=== PATIENT | female | born 1970 | race Caucasian/White ===

== ENCOUNTER 2019-07-19 17:39 | Inpatient (IN) | payer BC ==
[2019-07-19] MEDS ORDERED: AMPICILLIN NA/SULBACTAM NA 3 GM in SODIUM CHLORIDE 100 ML IVPB ONE (18:05)
--- NOTE | 2019-07-19 18:05 | PDOC ---
Rapid Medical Evaluation Medical Evaluation: I have performed a brief in-person evaluation of this patient. The patient presents with a chief complaint of: s/p dog bite 2 days ago by her own dog; was placed on bactrim by outside urgent care; dog is UTD on rabies; saw allergy doctor today for follow-up and was advised to come to ED for streaking Pertinent physical exam findings: +L hand swelling, redness, streaking extending to shoulder I have ordered the following: Labs, abx The patient will proceed to the ED for further evaluation. 07/19/19 18:00 Discharge Disposition - Referrals Referrals: Giovanni Ramsey MD [Primary Care Provider] - - Patient Instructions - Post Discharge Activity
[2019-07-19 18:40] LABS: BASO % 0.4 % (0-2.0); EOS % 0.5 % (0-4.5); HEMOGLOBIN 12.4 GM/dL (10.7-15.3); LYMPH % 21.1 % (8-40); MCH 31.8 pg (25.7-33.7); MCHC 33.5 g/dl (32.0-36.0); MEAN CELL VOLUME 94.8 fl (80-96); PLATELET COUNT 178 K/MM3 (134-434)
[2019-07-19 19:14] LABS: ALBUMIN 3.9 g/dl (3.4-5.0); BILIRUBIN,TOTAL 0.7 mg/dL (0.2-1); CREATININE 0.8 mg/dL (0.55-1.3); POTASSIUM 3.7 mmol/L (3.5-5.1); TOT PROT 6.9 g/dl (6.4-8.2)
--- NOTE | 2019-07-19 19:34 | PDOC ---
History of Present Illness - General Chief Complaint: Wound Stated Complaint: LEFT HAND BITE BY DOG Time Seen by Provider: 07/19/19 18:00 History Source: Patient - History of Present Illness Initial Comments: 07/19/19 20:07 48 year old female s/p dog bite 2 days ago to left hand c/o increased redness and swelling to left hand with streaking to left axilla patient is currently on Bactrim denies fever/ chills, nausea, vomiting. PCP: Dr. Ramsey Allergisy/ asthma: Dr. Chaudhari PMHX: asthma, MBL deficiency, spinal fusion, mild mitral valve prolapse. 07/19/19 20:09 Past History - Past Medical History Allergies/Adverse Reactions: Allergies Allergy/AdvReac Type Severity Reaction Status Date / Time No Known Allergies Allergy Verified 07/19/19 18:08 Home Medications: Ambulatory Orders Metoprolol Succinate [Toprol Xl -] mg PO DAILY 07/19/19 Simvastatin [Zocor -] mg PO HS 07/19/19 Cardiac Disorders: Yes (MITRAL VALVE PROLAPSE) COPD: No HTN: Yes Other medical history: MANNOSE-BINDING LECTIN DEFICIENCY - Immunization History Immunization Up to Date: Yes - Suicide/Smoking/Psychosocial Hx Smoking Status: No Smoking History: Never smoked Years of Tobacco Use: 0 Have you smoked in the past 12 months: No Number of Cigarettes Smoked Daily: 0 Cigars Per Day: 0 Information on smoking cessation initiated: No Hx Alcohol Use: No (SOCIAL) Drug/Substance Use Hx: No Review of Systems - Review of Systems Able to Perform ROS?: Yes Is the patient limited Croatian proficient: No Constitutional: No: Symptoms Reported, See HPI, Chills, Diaphoresis, Fever, Loss of Appetite, Malaise, Night Sweats, Weakness, Weight Stable, Unintentional Wgt. Loss, Unexplained wgt Loss, Other Integumentary: Yes: Erythema (and pain to left hand) *Physical Exam - Vital Signs Last Vital Signs Temp Pulse Resp BP Pulse Ox 98.5 F 71 18 145/93 98 07/19/19 18:01 07/19/19 18:01 07/19/19 18:01 07/19/19 18:01 07/19/19 18:01 - Physical Exam General Appearance: Yes: Appropriately Dressed Respiratory/Chest: positive: Lungs Clear, Normal Breath Sounds Extremity: positive: Erythema (and swelling to left hand with streaking to axilla) Integumentary: positive: Normal Color, Dry, Warm Neurologic: positive: recovery operator helper II-XII NML intact, Fully Oriented, Alert, Normal Mood/ Affect ED Treatment Course - LABORATORY CBC & Chemistry Diagram: 07/19/19 18:19 07/19/19 18:19 - ADDITIONAL ORDERS Additional order review: Laboratory Results 07/19/19 18:19 Sodium 138 Potassium 3.7 Chloride 104 Carbon Dioxide 29 Anion Gap 5 L BUN 13.0 Creatinine 0.8 Est GFR (CKD-EPI)AfAm 99.63 Est GFR (CKD-EPI)NonAf 85.96 Random Glucose 84 Calcium 9.0 Total Bilirubin 0.7 AST 17 ALT 23 Alkaline Phosphatase 58 Total Protein 6.9 Albumin 3.9 07/19/19 18:19 RBC 3.90 MCV 94.8 MCHC 33.5 RDW 13.0 MPV 8.0 Neutrophils % 72.0 Lymphocytes % 21.1 Monocytes % 6.0 Eosinophils % 0.5 Basophils % 0.4 Medical Decision Making - Medical Decision Making 07/19/19 20:14 A: cellulitis with failed outpatient treatment P: blood culture cbc cmp ua IVF left hand xray zosyn vanco admit *DC/Admit/Observation/Transfer Diagnosis at time of Disposition: Cellulitis and abscess of hand - Discharge Dispostion Decision to Admit order: Yes - Referrals Referrals: Giovanni Ramsey MD [Primary Care Provider] - - Patient Instructions - Post Discharge Activity
[2019-07-19] MEDS ORDERED: VANCOMYCIN 1 GM in D5W (PRE-DOCKED) 1,000 MG/250 ML IVPB ONE (19:39)
[2019-07-19] MEDS ORDERED: PIPERACILLIN/TAZOB 3.375 GM 3.375 GM in DEXTROSE 5%-WATER - 50 ML IVPB ONE (19:39)
[2019-07-19] MEDS ORDERED: VANCOMYCIN 1 GRAM (PRE-DOCKED) 1,000 MG/250 ML BAG IVPB ONE (19:45)
[2019-07-19] MEDS ORDERED: PIPERACILLIN/TAZOB 3.375 GM 3.375 GM/50 ML BAG IVPB ONE (19:45)
--- NOTE | 2019-07-19 19:45 | PDOC ---
*Physical Exam - Vital Signs Last Vital Signs Temp Pulse Resp BP Pulse Ox 98.5 F 71 18 145/93 98 07/19/19 18:01 07/19/19 18:01 07/19/19 18:01 07/19/19 18:01 07/19/19 18:01 ED Treatment Course - LABORATORY CBC & Chemistry Diagram: 07/19/19 18:19 07/19/19 18:19 - ADDITIONAL ORDERS Additional order review: Laboratory Results 07/19/19 18:19 Sodium 138 Potassium 3.7 Chloride 104 Carbon Dioxide 29 Anion Gap 5 L BUN 13.0 Creatinine 0.8 Est GFR (CKD-EPI)AfAm 99.63 Est GFR (CKD-EPI)NonAf 85.96 Random Glucose 84 Calcium 9.0 Total Bilirubin 0.7 AST 17 ALT 23 Alkaline Phosphatase 58 Total Protein 6.9 Albumin 3.9 07/19/19 18:19 RBC 3.90 MCV 94.8 MCHC 33.5 RDW 13.0 MPV 8.0 Neutrophils % 72.0 Lymphocytes % 21.1 Monocytes % 6.0 Eosinophils % 0.5 Basophils % 0.4 - Medications Given in the ED: ED Medications Discontinued Medications Generic Name Dose Route Start Last Admin Trade Name Freq PRN Reason Stop Dose Admin Ampicillin Sodium/Sulbactam 100 mls @ 200 mls/hr 07/19/19 18:05 07/19/19 19: 42 Sodium 3 gm/ Sodium Chloride IVPB 07/19/19 18:34 Not Given ONCE ONE Medical Decision Making - Medical Decision Making 07/19/19 19:45 Patient seen by the advanced practice provider under my direct supervision. Ancillary testing reviewed as necessary. I agree with plan as outlined by the advanced practice provider. *DC/Admit/Observation/Transfer Diagnosis at time of Disposition: Cellulitis and abscess of hand - Referrals - Patient Instructions - Post Discharge Activity
[2019-07-19 20:21] LABS: EPI CELLS 2.6 /HPF (0-5/HPF); HYALINE CASTS 1 /lpf (0-8); URINE APPEARANCE CLEAR; URINE BACTERIA 48.6 /hpf (NEGATIVE); URINE BILIRUBIN NEGATIVE (NEGATIVE); URINE COLOR YELLOW; URINE GLUCOSE (UA) NEGATIVE (NEGATIVE); URINE KETONE TRACE (NEGATIVE); URINE LEUK ESTERASE NEGATIVE (NEGATIVE); URINE NITRITE NEGATIVE (NEGATIVE); URINE PROTEIN NEGATIVE (NEGATIVE); URINE UROBILINOGEN 0.2 mg/dL (0.2-1.0); URINE WBC 1 /hpf (0-5)
--- NOTE | 2019-07-19 20:48 | HP ---
Admitting History and Physical - Primary Care Physician PCP: Giovanni Ramsey - Admission Chief Complaint: Left Hand Swelling with Redness History of Present Illness: This is a 48 y/o woman with a PMHx of Asthma, MVP, MBL Deficiency, MVP. Who presents to the ED with worsening redness, pain and swelling to her left hand s/ p dog bite 2 days ago. Patient reports that her dog's vaccinations are up to date. Patient was seen and treated at Urgent Care placed on Bactrim with no improvement. Patient reports today increased swelling with redness going up her left arm. She reports taking Advil for pain with some relief. Patient denies fever, chills, numbness, tingling. Patient denies cough, BOOKER, dizziness, SOB, CP , palpitations, AP, N/V/D, constipation, dysuria. Patient's last TD one year ago. LMP 2 weeks ago History Source: Patient Limitations to Obtaining History: No Limitations - Past Medical History Cardiovascular: Yes: Hyperlipdemia, Other (MVP) Pulmonary: Yes: Asthma Additional Past Medical History: MDL deficiency - Past Surgical History Additional Past Surgical History: Spinal Fusion - Smoking History Smoking history: Never smoked Have you smoked in the past 12 months: No Aproximately how many cigarettes per day: 0 - Alcohol/Substance Use Hx Alcohol Use: No (SOCIAL) Home Medications - Allergies Allergies/Adverse Reactions: Allergies Allergy/AdvReac Type Severity Reaction Status Date / Time No Known Allergies Allergy Verified 07/19/19 18:08 - Home Medications Home Medications: Ambulatory Orders Metoprolol Succinate [Toprol Xl -] 50 mg PO DAILY 07/19/19 Simvastatin [Zocor -] 20 mg PO HS 07/19/19 Family Disease History - Family Disease History Family Disease History: Heart Disease: Father ([place] age 45), Mother Review of Systems - Review of Systems Constitutional: reports: No Symptoms Eyes: reports: No Symptoms HENT: reports: No Symptoms Neck: reports: No Symptoms Cardiovascular: reports: No Symptoms Respiratory: reports: No Symptoms Gastrointestinal: reports: No Symptoms Genitourinary: reports: No Symptoms Breasts: reports: No Symptoms Reported Musculoskeletal: reports: Extremity Pain, Other (left hand swelling) Integumentary: reports: Erythema, Wound Neurological: reports: No Symptoms Endocrine: reports: No Symptoms Hematology/Lymphatic: reports: No Symptoms Psychiatric: reports: No Symptoms Pain Intensity: 5 Physical Examination Vital Signs: Vital Signs Temperature 98.5 F 07/19/19 18:01 Pulse Rate 71 07/19/19 18:01 Respiratory Rate 18 07/19/19 18:01 Blood Pressure 145/93 07/19/19 18:01 O2 Sat by Pulse Oximetry (%) 98 07/19/19 18:01 Constitutional: Yes: Well Nourished, No Distress, Calm Eyes: Yes: WNL, Conjunctiva Clear, EOM Intact, PERRL HENT: Yes: WNL, Atraumatic, Normocephalic Neck: Yes: WNL, Supple, Trachea Midline Cardiovascular: Yes: WNL, Regular Rate and Rhythm, S1, S2 Respiratory: Yes: WNL, Regular, CTA Bilaterally Gastrointestinal: Yes: WNL, Normal Bowel Sounds, Soft ...Rectal Exam: Yes: Deferred Renal/: Yes: WNL Breast(s): Yes: WNL Musculoskeletal: Yes: Other (swelling to left hand/fingers) Extremities: Yes: Erythema (left hand, fluctulance to palmar aspect with streaking going up to left upper arm), Other Peripheral Pulses WNL: Yes Integumentary: Yes: Erythema Wound/Incision: Yes: Reddened Neurological: Yes: WNL, Alert, Oriented, Cran Nerves II-XII Intact ...Motor Strength: WNL Psychiatric: Yes: WNL, Alert, Oriented Labs: CBC, BMP 07/19/19 18:19 07/19/19 18:19 Laboratory Results - last 24 hr 07/19/19 07/19/19 07/19/19 18:19 18:19 19:55 WBC 8.0 RBC 3.90 Hgb 12.4 Hct 37.0 MCV 94.8 MCH 31.8 MCHC 33.5 RDW 13.0 Plt Count 178 D MPV 8.0 Absolute Neuts (auto) 5.8 Neutrophils % 72.0 Lymphocytes % 21.1 Monocytes % 6.0 Eosinophils % 0.5 Basophils % 0.4 Nucleated RBC % 0 Sodium 138 Potassium 3.7 Chloride 104 Carbon Dioxide 29 Anion Gap 5 L BUN 13.0 Creatinine 0.8 Est GFR (CKD-EPI)AfAm 99.63 Est GFR (CKD-EPI)NonAf 85.96 Random Glucose 84 Calcium 9.0 Total Bilirubin 0.7 AST 17 ALT 23 Alkaline Phosphatase 58 Total Protein 6.9 Albumin 3.9 Serum , Qual Urine Color Yellow Urine Appearance Clear Urine pH 7.0 Ur Specific [place] 1.009 L Urine Protein Negative Urine Glucose (UA) Negative Urine Ketones Trace H Urine Blood Trace Urine Nitrite Negative Urine Bilirubin Negative Urine Urobilinogen 0.2 Ur Leukocyte Esterase Negative Urine WBC (Auto) 1 Urine RBC (Auto) 5-10 Urine Casts (Auto) 1 U Epithel Cells (Auto) 2.6 Urine Bacteria (Auto) 48.6 Urine Yeast (Auto) Negative 07/20/19 00:34 WBC RBC Hgb Hct MCV MCH MCHC RDW Plt Count MPV Absolute Neuts (auto) Neutrophils % Lymphocytes % Monocytes % Eosinophils % Basophils % Nucleated RBC % Sodium Potassium Chloride Carbon Dioxide Anion Gap BUN Creatinine Est GFR (CKD-EPI)AfAm Est GFR (CKD-EPI)NonAf Random Glucose Calcium Total Bilirubin AST ALT Alkaline Phosphatase Total Protein Albumin Serum , Qual Negative Urine Color Urine Appearance Urine pH Ur Specific [place] Urine Protein Urine Glucose (UA) Urine Ketones Urine Blood Urine Nitrite Urine Bilirubin Urine Urobilinogen Ur Leukocyte Esterase Urine WBC (Auto) Urine RBC (Auto) Urine Casts (Auto) U Epithel Cells (Auto) Urine Bacteria (Auto) Urine Yeast (Auto) Intake & Output 07/17/19 07/18/19 07/19/19 07/20/19 23:59 23:59 23:59 23:59 Weight 73.573 kg Current Medications Generic Name Dose Route Start Last Admin Trade Name Freq PRN Reason Stop Dose Admin Albuterol Sulfate 2 puff 07/20/19 00:43 Ventolin Hfa Inhaler - IH Q4H PRN SHORT OF BREATH/WHEEZING Heparin Sodium (Porcine) 5,000 unit 07/19/19 22:00 07/20/19 00:06 Heparin - SQ 5,000 unit BID [facility] Administration Vancomycin HCl 1,000 mg/ 250 mls @ 200 mls/hr 07/20/19 10:00 Dextrose IVPB Q24H [facility] Protocol Piperacillin Sod/Tazobactam 50 mls @ 100 mls/hr 07/20/19 04:00 Sod 3.375 gm/ Dextrose IVPB Q8H-IV [facility] Protocol Piperacillin Sod/Tazobactam 50 mls @ 100 mls/hr 07/20/19 02:00 07/20/19 01:13 Sod 3.375 gm/ Dextrose IVPB 07/20/19 18:29 100 mls/hr Q8H-IV [facility] Administration Protocol Ibuprofen 400 mg 07/20/19 00:31 07/20/19 00:41 Motrin - PO 400 mg Q6H PRN Administration PAIN LEVEL 6-10 Metoprolol Succinate 50 mg 07/20/19 10:00 Toprol Xl - PO DAILY [facility] Non-Formulary Medication 20 mg 07/20/19 22:00 Simvastatin PO HS [facility] Imaging - Results Chest X-ray: Image Reviewed X-ray: Image Reviewed EKG: Image Reviewed Problem List - Problems (1) Cellulitis and abscess of hand Assessment/Plan: s/p dog bite Likely secondary to Failed Outpatient Therapy Blood Cultures-pending No leukocytosis, is afebrile- likely due to ABX use Vancomycin and Zosyn given in ED, will continue Xray Left Hand image reviewed Appreciate ID consult Elevate extremity Neurovascular checks Monitor CBC, BMP Monitor vitals Code(s): L03.119 - CELLULITIS OF UNSPECIFIED PART OF LIMB; L02.519 - CUTANEOUS ABSCESS OF UNSPECIFIED HAND (2) Asthma Assessment/Plan: stable No acute flare Albuterol MDI prn Code(s): J45.909 - UNSPECIFIED ASTHMA, UNCOMPLICATED (3) MVP (mitral valve prolapse) Assessment/Plan: stable Continue Metoprolol with parameters Code(s): I34.1 - NONRHEUMATIC MITRAL (VALVE) PROLAPSE (4) HLD (hyperlipidemia) Assessment/Plan: stable Continue Zocor Monitor LFTs Code(s): E78.5 - HYPERLIPIDEMIA, UNSPECIFIED (5) Mannose-binding lectin deficiency Assessment/Plan: f/u with Press Department Manager Code(s): Q99.8 - OTHER SPECIFIED CHROMOSOME ABNORMALITIES Assessment/Plan This is a 48 y/o woman with a PMHx of Asthma, MVP, MBL Deficiency, s/p Spinal Fusion. Admitted for Cellulitis of L- Hand for further evaluation of their emergent condition. Plan: See Problem List FEN PO fluids as tolerated Replete lytes prn Low Na Diet DVT ppx OOB SCDs Heparin SQ Dispo: Requires Inpatient Care Visit type - Emergency Visit Emergency Visit: Yes ED Registration Date: 07/19/19 Care time: The patient presented to the Emergency Department on the above date and was hospitalized for further evaluation of their emergent condition. - New Patient This patient is new to me today: Yes Date on this admission: 07/19/19 - Critical Care Critical Care patient: No
[2019-07-19] MEDS ORDERED: VANCOMYCIN 1 GRAM (PRE-DOCKED) 1,000 MG/250 ML BAG IVPB SCH (21:00)
[2019-07-19 21:06] LABS: YEAST NEGATIVE (NEGATIVE)
[2019-07-19 23:52] VITALS: BMI 24.6
[2019-07-20] MEDS ORDERED: PIPERACILLIN/TAZOBACTAM 3.375 GM VIAL IVPB ONE ×2 (00:02→09:27)
[2019-07-20] MEDS ORDERED: DEXTROSE 5%-WATER - 50 ML IVPB ONE ×2 (00:02→09:27)
[2019-07-20] MEDS: HEPARIN NA (PORCINE) 5,000 UNITS/ML 1ML VIAL SQ SCH ×3 (00:06→22:35)
[2019-07-20] MEDS ORDERED: IBUPROFEN 400 MG TABLET (FP) PO PRN (00:31)
[2019-07-20] MEDS ORDERED: ALBUTEROL SO4 8 GM HFA INHALER IH PRN (00:43)
[2019-07-20] MEDS: PIPERACILLIN/TAZOB 3.375 GM 3.375 GM in DEXTROSE 5%-WATER - 50 ML IVPB SCH ×2 (01:13→09:30)
[2019-07-20] MEDS ORDERED: PIPERACILLIN/TAZOB 3.375 GM 3.375 GM in DEXTROSE 5%-WATER - 50 ML IVPB SCH (04:00)
[2019-07-20 08:14] LABS: BASO % 0.4 % (0-2.0); HEMATOCRIT 35.1 % (32.4-45.2); HEMOGLOBIN 11.8 GM/dL (10.7-15.3); LYMPH % 26.3 % (8-40); MCH 31.8 pg (25.7-33.7); MCHC 33.6 g/dl (32.0-36.0); MEAN CELL VOLUME 94.6 fl (80-96); MEAN PLT VOLUME 8.1 fl (7.5-11.1); MONO % 8.7 % (3.8-10.2); NEUT % 63.6 % (42.8-82.8); PLATELET COUNT 168 K/MM3 (134-434); RBC 3.71 M/mm3 (3.60-5.2); RDW 12.8 % (11.6-15.6); WHITE BLOOD COUNT 4.8 K/mm3 (4.0-10.0)
[2019-07-20 08:35] LABS: CALCIUM 8.8 mg/dL (8.5-10.1); CREATININE 0.7 mg/dL (0.55-1.3); POTASSIUM 3.9 mmol/L (3.5-5.1)
[2019-07-20] MEDS ORDERED: PT OWN MED DRAWER 7, Y5N ONE (09:27)
[2019-07-20] MEDS ORDERED: VANCOMYCIN 1,000 MG in DEXTROSE 5%-WATER - 250 ML IVPB SCH (10:00)
--- NOTE | 2019-07-20 10:02 | PN ---
Progress Note (short form) - Note Progress Note: Pt seen and examined. She is a 48 year old right hand dominant female who was bitten by her dog 3 days ago, her left hand became infected, the infection was spreading to her forearm when she was instructed to come to the ER. Since admission she has been on IV antibiotics, and she states that the infection stopped spreading and is much improved. Her pain is less, her ROM is better, the area of streaking erythema is dramatically better, swelling is better. AVSS WBC decreased to 4.8 Blood Cx Pending Left hand has mild swelling and erythema around the middle finger, going into the hand. No streaking into the forearm. Not hot. No fluid collection/abscess No signs of flexor tendon sheath infection NVI No functional deficits Nontender globally over the left hand, and middle finger X-rays of the left hand are normal, no acute vikas pathology Imp Dog bite infection of the left hand and middle finger, now much improved. Rec No need for surgery Rec elevation, ROM exercises Con't abx as per PMD, will change to PO soon
--- NOTE | 2019-07-20 10:33 | PN ---
Progress Note (short form) - Note Progress Note: CELLULITIS/ LYMPHANGITIS L HAND S/P DOG BITE L HAND HX MANNOSE BINDING LECTIN DEFICIENCY AWAIT C/S EMPIRIC UNASYN/ VANCOMYCIN ELEVATION HAND SURGERY EVALUATION APPRECIATED
[2019-07-20] MEDS: VANCOMYCIN 1 GRAM (PRE-DOCKED) 1,000 MG/250 ML BAG IVPB SCH ×2 (11:21→22:40)
--- NOTE | 2019-07-20 11:27 | EKG ---
Test Reason : Blood Pressure : / mmHG Vent. Rate : 065 BPM Atrial Rate : 065 BPM P-R Int : 166 ms QRS Dur : 116 ms QT Int : 440 ms P-R-T Axes : 082 067 065 degrees QTc Int : 457 ms NORMAL SINUS RHYTHM POSSIBLE LEFT ATRIAL ENLARGEMENT INCOMPLETE RIGHT BUNDLE BRANCH BLOCK BORDERLINE ECG WHEN COMPARED WITH ECG OF 05-JUN-2016 07:57, NO SIGNIFICANT CHANGE WAS FOUND Confirmed by RUSTY SWAIN, JULIANE ([id number]) on 07/20/2019 11:27:16 AM Referred By: Confirmed By:JULIANE OJEDA MD
--- NOTE | 2019-07-20 13:19 | CONS ---
INFECTIOUS DISEASE CONSULTATION DATE OF CONSULTATION: DATE OF DICTATION: 07/20/2019 HISTORY OF PRESENT ILLNESS: The patient is a 48-year-old, female with a history of asthma and mannose-binding lectin deficiency who is evaluated for cellulitis and lymphangitis of the left hand and left upper extremity. Patient sustained a dog bite to her left hand on Wednesday, July 17, 2019. The patient reports that it was her own pet beagle who is up-to-date with respect to immunizations. She sustained a bite wound to the dorsum and palmar aspects of the left hand. She developed swelling and erythema. She presented to an [facility] where she was evaluated and prescribed Bactrim. Yesterday, she presented to her hcc coders and was noted to have marked swelling and erythema of the left hand with lymphangitic streaking. She was advised to go to the emergency room for admission. The patient was evaluated and admitted. She was empirically treated with vancomycin and Zosyn. The patient did note some purulent drainage from the palmar bite wound. No culture is available. The patient states her dog is up-to-date with respect to immunizations. She herself received a tetanus vaccine approximately 1 year ago. She reports recently being diagnosed with mannose-binding lactin deficiency. She is on no specific treatment for that condition. She denies any associated fever or chills. Patient denies history of serious soft-tissue infection requiring hospitalization or intravenous antibiotics. PAST MEDICAL HISTORY: Positive for asthma, mannose-binding lactin deficiency, hyperlipidemia, mitral valve prolapse. PAST SURGICAL HISTORY: Status post spinal fusion. ALLERGIES: No known allergies. MEDICATIONS: Toprol, Zocor. SYSTEMS REVIEW: Neurologic: No loss of consciousness, seizure activity, focal weakness. Cardiac: Negative chest pain or palpitations. Respiratory: Negative cough or sputum production. Gastrointestinal: Negative vomiting or diarrhea. Genitourinary: Negative for urinary tract infection. SOCIAL HISTORY: Lives at home with her significant other. She is a nonsmoker. Occasional EtOH. LABORATORY DATA: White count 4.8, hematocrit 35.1, platelet count 168. Creatinine 0.7. test negative. Urinalysis: One white cell. Blood cultures are pending. IMAGING: X-ray of the hand shows no acute bony abnormalities. PHYSICAL EXAMINATION: General: On physical examination, she is awake and alert, supine in bed, in no acute distress. Vital Signs: Temperature 98.7, blood pressure 116/60, pulse 66 regular, respirations 18 per minute. Eyes: Sclerae are anicteric. Heart: Heart sounds S1, S2. No murmur. Lungs: Clear. Abdomen: Soft. Nontender. Extremities: Negative for pedal edema. Examination of the left hand: There are puncture wounds present on the dorsum and palmar aspects of the left hand. There is swelling of the dorsum of the hand, as well as the 3rd MCP joint with diffuse swelling of the left 3rd digit. There is erythema extending from the finger to the dorsum of the hand with lymphangitic streaking above the elbow on the medial aspect of the upper extremity. No expressible pus. There is tenderness to palpation. IMPRESSION: 1. Status post dog bite, left hand. 2. Cellulitis/lymphangitis, left hand and upper extremity. 3. History of mannose-binding lectin deficiency. Await cultures. Empiric antibiotic coverage with Unasyn and vancomycin. Elevation. Hand Surgery evaluation appreciated. Thank you for the kind referral. MIGUEL MEADOWS M.D. [id number]
--- NOTE | 2019-07-20 14:04 | PN ---
Progress Note, Physician Chief Complaint: Cellulitis, L hand History of Present Illness: Previous notes and events reviewed awake and alert NAD mild complaints of pain to L hand no leukocytosis afebrile - Current Medication List Current Medications: Active Medications Albuterol Sulfate (Ventolin Hfa Inhaler -) 2 puff IH Q4H PRN PRN Reason: SHORT OF BREATH/WHEEZING Heparin Sodium (Porcine) (Heparin -) 5,000 unit SQ BID [facility] Last Admin: 07/20/19 09:32 Dose: 5,000 unit Ampicillin Sodium/Sulbactam (Sodium 3 gm/ Sodium Chloride) 100 mls @ 200 mls/ hr IVPB Q8H-IV [facility] Vancomycin HCl (Vancomycin (Pre-Docked)) 1,000 mg in 250 mls @ 166.667 mls/hr IVPB Q12H [facility]; Protocol Last Admin: 07/20/19 11:21 Dose: 166.667 mls/hr Ibuprofen (Motrin -) 400 mg PO Q6H PRN PRN Reason: PAIN LEVEL 6-10 Last Admin: 07/20/19 00:41 Dose: 400 mg Metoprolol Succinate (Toprol Xl -) 50 mg PO DAILY [facility] Last Admin: 07/20/19 09:39 Dose: Not Given Non-Formulary Medication (Simvastatin) 20 mg PO HS [facility] - Objective Vital Signs: Vital Signs Temperature 98 F 07/20/19 08:25 Pulse Rate 64 07/20/19 08:25 Respiratory Rate 20 07/20/19 08:25 Blood Pressure 134/75 07/20/19 08:25 O2 Sat by Pulse Oximetry (%) 99 07/19/19 23:36 Constitutional: Yes: No Distress, Calm Eyes: Yes: Conjunctiva Clear HENT: Yes: Atraumatic Cardiovascular: Yes: Regular Rate and Rhythm Respiratory: Yes: Regular, CTA Bilaterally Gastrointestinal: Yes: Normal Bowel Sounds, Soft Musculoskeletal: Yes: WNL Extremities: Yes: Erythema (LUE) Edema: Yes (L hand) Integumentary: Yes: Erythema (L hand) Wound/Incision: Yes: Open to air (L palm, no drainage noted, mild erythema, warm to touch) Neurological: Yes: Alert, Oriented Psychiatric: Yes: Alert, Oriented Labs: CBC, BMP 07/20/19 07:37 07/20/19 07:37 Problem List - Problems (1) Asthma Assessment/Plan: -bronchodilator -O2 via NC prn for SOB -keep SpO2 >90% Code(s): J45.909 - UNSPECIFIED ASTHMA, UNCOMPLICATED (2) Cellulitis and abscess of hand Assessment/Plan: -ID on board -IV Unasyn, Vancomycin -BC pending -no leukocytosis -afebrile -Hand Surgery on board--no surgical intervention recommended -ROM exercises -L hand elevation Code(s): L03.119 - CELLULITIS OF UNSPECIFIED PART OF LIMB; L02.519 - CUTANEOUS ABSCESS OF UNSPECIFIED HAND (3) HLD (hyperlipidemia) Assessment/Plan: -Simvastatin Code(s): E78.5 - HYPERLIPIDEMIA, UNSPECIFIED Assessment/Plan see problem list dvt ppx
[2019-07-20] MEDS ORDERED: SODIUM CHLORIDE 100 ML IVPB ONE (17:48)
[2019-07-20] MEDS ORDERED: AMPICILLIN NA/SULBACTAM NA 3 GM VIAL ONE (17:48)
[2019-07-20] MEDS: AMPICILLIN NA/SULBACTAM NA 3 GM in SODIUM CHLORIDE 100 ML IVPB SCH (17:55)
[2019-07-20] MEDS ORDERED: PATIENT'S OWN MEDICATION (NON-FORMULARY) (Simvastatin 20 MG) PO SCH (22:00)
[2019-07-20] MEDS: ATORVASTATIN CA 10 MG TABLET (FP) PO SCH ×2 (22:35→22:46)
[2019-07-21] MEDS ORDERED: AMPICILLIN NA/SULBACTAM NA 3 GM VIAL ONE ×2 (01:42→09:27)
[2019-07-21] MEDS ORDERED: SODIUM CHLORIDE 100 ML IVPB ONE ×2 (01:42→09:28)
[2019-07-21] MEDS: AMPICILLIN NA/SULBACTAM NA 3 GM in SODIUM CHLORIDE 100 ML IVPB SCH ×2 (01:55→09:31)
[2019-07-21 07:41] LABS: HEMATOCRIT 36.8 % (32.4-45.2); HEMOGLOBIN 12.3 GM/dL (10.7-15.3); MCH 31.4 pg (25.7-33.7); MCHC 33.4 g/dl (32.0-36.0); PLATELET COUNT 177 K/MM3 (134-434); RBC 3.92 M/mm3 (3.60-5.2); RDW 12.7 % (11.6-15.6); WHITE BLOOD COUNT 2.7 K/mm3 (4.0-10.0)
[2019-07-21 08:17] LABS: ALBUMIN 3.3 g/dl (3.4-5.0); BILIRUBIN,TOTAL 0.5 mg/dL (0.2-1); BLOOD UREA NITROGEN 10.3 mg/dL (7-18); CALCIUM 8.7 mg/dL (8.5-10.1); CREATININE 0.8 mg/dL (0.55-1.3); TOT PROT 6.2 g/dl (6.4-8.2)
[2019-07-21] MEDS: HEPARIN NA (PORCINE) 5,000 UNITS/ML 1ML VIAL SQ SCH (09:30)
--- NOTE | 2019-07-21 09:34 | PN ---
Progress Note (short form) - Note Progress Note: Pt seen and examined. She is much improved compared to 24 hours ago. Her pain, swelling, erythema are all less. Better ROM with little to no pain. Overall the cellulitis of the left middle finger and hand are much improved. Can change to PO antibiotics and DC from an orthopedic pov. Can f/u as needed
--- NOTE | 2019-07-21 10:20 | DS ---
Physical Examination Vital Signs: Vital Signs Temperature 98.1 F 07/21/19 06:21 Pulse Rate 51 L 07/21/19 06:21 Respiratory Rate 18 07/21/19 06:21 Blood Pressure 111/68 07/21/19 06:21 O2 Sat by Pulse Oximetry (%) 98 07/20/19 21:00 Findings/Remarks: AWAKE ALERT CLEARED BY HAND SURGEON CHANGE TO PO ABX PER DR VO Constitutional: Yes: No Distress Eyes: Yes: WNL HENT: Yes: WNL Neck: Yes: WNL Cardiovascular: Yes: WNL Respiratory: Yes: WNL Gastrointestinal: Yes: WNL Musculoskeletal: Yes: Other (LEFT HAND SKIN BREAK CLEAN NO DISCHARGE OR ERYTHEMA ) Integumentary: Yes: Skin Tear (CLEAN) Neurological: Yes: WNL ...Motor Strength: WNL Psychiatric: Yes: WNL Labs: CBC, BMP 07/21/19 07:00 07/21/19 07:00 Discharge Summary Reason For Visit: CELLULITIS AND ABSCESS OF HAND Current Active Problems Asthma (Acute) Cellulitis and abscess of hand (Acute) HLD (hyperlipidemia) (Acute) MVP (mitral valve prolapse) (Acute) Mannose-binding lectin deficiency (Acute) Procedures: Principal: XRAYS Hospital Course: ADMITTED FOR DOG BIT LEFT HAND, FEELS BETTER AFTER IV ABX AND ERYTHEMA IMPROVED Condition: Improved - Instructions Diet, Activity, Other Instructions: SEE DR QIUNONES IN 1 WEEK FOR FOLLOW UP Disposition: HOME - Home Medications Comprehensive Discharge Medication List: Ambulatory Orders Metoprolol Succinate [Toprol Xl -] 50 mg PO DAILY 07/19/19 Simvastatin [Zocor -] 20 mg PO HS 07/19/19
[2019-07-21] MEDS: VANCOMYCIN 1 GRAM (PRE-DOCKED) 1,000 MG/250 ML BAG IVPB SCH (10:28)
[2019-07-21 10:39] VITALS: BP 112/73; PULSE 60; TEMP 98.3
== END 2019-07-21 12:26 | disposition home or self-care (01) | DRG 603 ==
LOC: JER 17:39 → JERBED 20:30 → J8W 23:23
PROVIDERS: ADMIT Family Medicine; ATTEND Family Medicine
DX: L03.114 Cellulitis of left upper limb (principal); L02.519 Cutaneous abscess of unspecified hand; L03.012 Cellulitis of left finger; J45.909 Unspecified asthma, uncomplicated; I34.1 Nonrheumatic mitral (valve) prolapse; Q99.8 Other specified chromosome abnormalities; E78.5 Hyperlipidemia, unspecified; S61.253A Open bite of left middle finger without damage to nail, initial encounter; W54.0XXA Bitten by dog, initial encounter; Y92.098 Other place in other non-institutional residence as the place of occurrence of the external cause
CPT/HCPCS: 36415; 71046-TC-FY; 73130-TC-LT-FY; 80048; 80053; 81003; 84703; 85025; 85027; 87040; 93005; 93010; 99285-25; J1644